=== PATIENT | male | born 1970 | race Caucasian/White ===

== ENCOUNTER → 2017-01-20 | Outpatient (CLI) | payer OTHER ==
[~2017-01-20] VITALS: Ht 180.3 cm; Wt 129.1 kg
[~2017-01-20] MED LIST: ASPI81TA23 PO; ATEN25TA PO; CHLORHEXIDINE GLUCONATE 2 % 1 PACK (2 CLOTHS) TOPICAL PRN; DO NOT ADM ANY ANTICOAGULANT DRUGS PRN; DOXY100T PO; INDOMETHACIN 50 MG SUPP RECTAL ONE; LACTATED RINGER'S 1000 ML IV PRN; METOPROLOL TARTRATE 25 MG TAB PO PRN; PHENYLEPH/NS 1000 MCG/10 ML SYR IV ONE; POVIDONE IODINE 5% (ANTISEPSIS KIT) 4 APPLICATIONS EACH NARE PRN; PROPOFOL 200 MG/20 ML AMP IV ONE; SODIUM CHLORID 0.9% 500 ML IV PRN; Z.0.NO CURRENT MEDS
--- NOTE | 2017-01-20 13:48 | RADRPT ---
EXAM DATE/TIME: 01/20/2017 13:05 [place] COMPARISON: No previous studies available for comparison. INDICATIONS : Obstruction FLUORO TIME: 5.23 minutes IMAGE COUNT: 4 CONTRAST: Instilled by Ordering Physician MEDICAL HISTORY : None. SURGICAL HISTORY : None. ENCOUNTER: Initial ACUITY: 1 day PAIN SCORE: Non-responsive. LOCATION: Abdomen FINDINGS: An ERCP was performed by the ordering physician. The images demonstrate the pancreatic duct and common bile duct normal in caliber. No stones are seen . CONCLUSION: ERCP as above. Juan Mansfield MD on January 20, 2017 at 13:46 Board Certified Radiologist. This report was verified electronically.
--- NOTE | 2017-01-20 13:50 | GIPROC ---
[facility] [address] [place] [facility]. [facility], [id number] ERCP PROCEDURE REPORT EXAM DATE: 01/20/2017 PATIENT NAME: Trevor Iyer MR #: [id number] BIRTHDATE: 1970 ATTENDING: Selin Pool MD ORDER #: [id number] LINE MANAGER: Pretty Borden and Izzy Abrams STATUS: outpatient INDICATIONS: The patient is a 46 yr old male here for an ERCP due to suspected or rule out bile duct stones PROCEDURE PERFORMED: ERCP, Level 1 MEDICATIONS: None and Per Anesthesia. CONSENT: The patient understands the risks and benefits of the procedure and understands that these risks include, but are not limited to: sedation, allergic reaction, infection, perforation and/or bleeding. Alternative means of evaluation and treatment include, among others: physical exam, x-rays, and/or surgical intervention. The patient elects to proceed with this endoscopic procedure. medical equipment was checked for proper function. Hand hygiene and appropriate measures for infection prevention was taken. After the risks, benefits and alternatives of the procedure were thoroughly explained, Informed was verified, confirmed and timeout was successfully executed by the treatment team. With the patient in left semi-prone position, medications were administered intravenously.The Pentax [id number] was passed from the mouth into the esophagus and further advanced from the esophagus into the stomach. From stomach scope was directed to the second portion of the duodenum. Major papilla was aligned with the duodenoscope. The scope position was confirmed fluoroscopically. Rest of the findings/therapeutics are given below. The scope was then completely withdrawn from the patient and the procedure completed. The pulse, BP, and O2 saturation were monitored and documented by the physician and the nursing staff throughout the entire procedure. The patient was cared for as planned according to standard protocol. The patient was then discharged to recovery in stable condition and with appropriate post procedure care. The ampulla was located the second portion of the duodenum, in a position more proximal than normal. Pancreatic dust normal. CBD normal in caliber. No filling defects seen. Multiple stones in Gall bladder. The ampulla appeared normal. ADVERSE EVENT: There were no complications. IMPRESSIONS: 1. Normal appearing ampulla 2. Normal cholangiogram 3. Normal pancreatogram RECOMMENDATIONS: 1. Liver enzymes 2. Referral to general surgery for Cholecystectomy with I.O.C. MRCP. 100mg indocin given NM suppository for pancreatitis prophylaxis. 3. Follow-up: GI clinic 2 week(s) REPEAT EXAM: Return as needed for ERCP Selin Polo MD eSigned: Selin Pool MD 01/20/2017 1:50 PM cc: Oskar Hampton M.D.
[2017-01-20 14:45] VITALS: BP 141/91; PULSE 73; RESP 20; TEMP 97.8; O2SAT 97
== END ==
LOC: HSDC 10:03
PROVIDERS: ATTEND Internal Medicine Gastroenterology
DX: K80.50 Calculus of bile duct without cholangitis or cholecystitis without obstruction (principal)
CPT/HCPCS: 00740; 43260; 74330; C1769; J2370; J7120

== ENCOUNTER → 2017-03-10 | Day surgery (SDC) | payer OTHER ==
[~2017-03-10] MED LIST changes: +ACETAMINOPHEN 1000 MG/100 ML 100 ML IV SCH; +CEFAZOLIN INJ 3,000 MG in SODIUM CHLORIDE 0.9% INJ 100 ML IV SCH; +DEXAMETHASONE SOD PHOS 4 MG/ML VIAL IV ONE; -DO NOT ADM ANY ANTICOAGULANT DRUGS PRN; -DOXY100T PO; +FAMOTIDINE 20 MG/2 ML VIAL ONE; +GLYCOPYRROLATE 1 MG/5 ML SYRINGE IV PUSH ONE; +HYDROmorphone HCL PF 0.5 MG/0.5 ML SYRINGE ONE; -INDOMETHACIN 50 MG SUPP RECTAL ONE; +KETOROLAC TROMETHAMINE 30 MG/ML (IVP) VIAL ONE; +LIDOCAINE HCL 1% PF 5 ML SYRINGE OTHER ONE; +MIDAZOLAM HCL 2 MG/2 ML VIAL ONE; +MORPHINE SULFATE 4 MG/ML INJ ONE; +NEOSTIGMINE 5 MG/5 ML SYRINGE IV PUSH ONE; +ONDANSETRON HCL 4 MG/2 ML VIAL IV PUSH ONE; +ONDANSETRON HCL 4 MG/2 ML VIAL ONE; -PHENYLEPH/NS 1000 MCG/10 ML SYR IV ONE; +ROCURONIUM INJ 50 MG/5 ML VIAL IV ONE; -Z.0.NO CURRENT MEDS
[2017-03-10 12:30] VITALS: PULSE 69
[2017-03-10 14:50] VITALS: BP 130/83; PULSE 87; RESP 15; TEMP 98.2; O2SAT 93
--- NOTE | 2017-03-11 18:15 | MP ---
cc: CAMILLAKEHINDE DATE OF SURGERY 03/10/17 PREOPERATIVE DIAGNOSIS Chronic cholecystitis and cholelithiasis. POSTOPERATIVE DIAGNOSIS Chronic cholecystitis and cholelithiasis. PROCEDURE Laparoscopic cholecystectomy. SURGEON Bronson Medrano MD ANESTHESIA General endotracheal OPERATIVE FINDINGS The patient was found to have a significantly diseased gallbladder with no adhesions to it. It was grossly thick-walled and had numerous large stones within its lumen. The cystic duct was grossly enlarged and there was no definite junction between the cystic duct and common bile duct that was able to be visualized due to the dense scar tissue and patulousness of the cystic duct. No other abnormalities were noted. PROCEDURE IN DETAIL The patient brought to the operating room and, after satisfactory general endotracheal anesthesia was obtained, the abdomen was prepped and draped in the usual sterile fashion. 0.5% Marcaine with epinephrine was used to infiltrate the skin for local anesthesia. A small incision was made above the umbilicus and a 5 mm trocar was placed into the peritoneal cavity under direct visualization. The abdomen was then distended to 15 mmHg using carbon dioxide after which the camera was reinserted and visceral injury inspected for, with none being identified. Under direct visualization, a 12 port and a 5 port were placed in the upper abdomen. The fundus of the gallbladder was grasped and retracted superiorly over the right lobe of the liver. Stephanie's pouch was then grasped and retracted inferiorly and laterally placing tension on the hepatoduodenal ligament. There were adhesions to Stephanie's pouch which were taken down bluntly. Due to the patulous nature of the Stephanie's pouch area as well as what was later seen to be the cystic duct, dissection was very difficult. The gallbladder was taken down in retrograde fashion by using the harmonic scalpel on the peritoneal connection to the liver. After clearing Stephanie's pouch as much as possible, the dissection was carried down with a repeated attempts at identifying if there was a common bile duct in this area going to the gallbladder. No evidence of the common bile duct was seen in that location and traction on the cystic duct, which was quite patulous as noted above, produced the tenting effect on the common bile duct more medially. At that time, it was decided to not attempt further dissection as the scar tissue was very dense and there was concern about causing injury to more vital structures. The gallbladder was encircled with Vicryl Endoloop which was secured lateral to where the cystic duct, common bile junction was most likely appreciated. A second Endoloop was placed slightly more distally, both secured very tightly. The cystic duct was then divided with the harmonic scalpel and the gallbladder placed within an EndoCatch bag and brought through the upper midline incision, which was necessarily enlarged to allow egress of the gallbladder in the bag. The gallbladder was passed for permanent pathology. The liver bed was then inspected and found to be hemostatic. There were several small stones which were collected and placed with the specimen. Hemostasis was again checked for and found to be satisfactory. The cystic duct and the cystic artery stumps were both seen to be intact with no leakage of bile or blood (It should be noted that the cystic artery was controlled with the harmonic scalpel earlier in the operation). The carbon dioxide was then vented as completely as possible into the atmosphere. The ports were removed and the 12 mm fascial defect which had been enlarged was closed with interrupted 0 Vicryl sutures. The skin was closed with interrupted 4-0 PDS subcuticular stitches. Steri-Strips were applied. The patient was then awakened and taken from the operating room, in satisfactory condition, having tolerated the procedure without a problem. Estimated blood loss was less than 25 L. The instrument, sponge count and needle counts were reported as being correct x2 at the end of the procedure. MD CHRISTOPHER Velazco/ /12:41 PM /5:44 PM
== END | disposition home or self-care (01) ==
LOC: PHSDC 07:23
PROVIDERS: ATTEND Surgery
DX: K80.10 Calculus of gallbladder with chronic cholecystitis without obstruction (principal); I10 Essential (primary) hypertension
CPT/HCPCS: 00790; 47562; 88304; J0131; J0690; J1100; J1170; J1885; J2250; J2270; J2405; J2710; J3010; J7120